=== PATIENT | male | born 1945 | race Caucasian/White ===

== ENCOUNTER 2019-07-22 13:28 | Outpatient (CLI) | payer OTHER, SELFPAY ==
--- NOTE | 2019-07-22 13:32 | ECG_ITS ---
Measurements Intervals [place] Rate: 78 P: -16 NE: 223 QRS: -22 QRSD: 100 T: 15 QT: 351 QTc: 401 Interpretive Statements SINUS RHYTHM WITH FIRST DEGREE AV BLOCK LOW VOLTAGE- PRECORDIAL LEADS BASELINE ARTIFACT- I, II, AVR ABNORMAL ECG Electronically Signed On 07-22-2019 15:02:20 CDT by Tomasz Wagner D.O.
[2019-07-22 14:33] LABS: Basophils Percent Auto 0.3 % (0.2-1.2); Eosinophils Absolute Auto 0.1 K/mm3 (0-0.3); Eosinophils Percent Auto 1.2 % (0-4.4); Hematocrit 38.4 % (42.0-52.0); Immature Granulocyte Absolute 0.04 K/mm3 (0.00-0.031); Immature Granulocyte Percent A 0.5 % (0-0.5); Lymphocytes Absolute Auto 1.18 K/mm3 (0.9-3.2); Lymphocytes Percent Auto 13.6 % (18.3-44.2); Mean Corpuscular HGB Conc 33.9 g/dl (32-36); Mean Corpuscular Hemoglobin 31.1 pg (26-34); Mean Corpuscular Volume 91.9 fl (80-100); Monocytes Absolute Auto 0.7 K/mm3 (0.1-0.6); Monocytes Percent Auto 7.5 % (2.6-8.5); Neutrophils Absolute Auto 6.7 K/mm3 (1.3-6.7); Neutrophils Percent Auto 76.9 % (45.5-73.1); Platelet Count Result 255 k/mm3 (150-375); Red Blood Count 4.18 M/mm3 (4.6-6.20); Red Cell Distribution Width 12.3 % (11.5-14.5); White Blood Count 8.7 K/mm3 (4.5-10.0)
[2019-07-22 14:45] LABS: Blood Urea Nitrogen 23 mg/dL (9-20); Carbon Dioxide 26 mmol/L (22-30); Chloride 103 mmol/L (98-107); Estimated Glomerular Filt Rate > 60; Glucose 138 mg/dL (75-110); Potassium 4.5 mmol/L (3.4-5.0); Sodium 137 mmol/L (137-145)
[2019-07-22 15:53] LABS: Prothrombin Time 13.3 Seconds (11.1-14.7)
[2019-07-22 15:56] LABS: Partial Thromboplastin Time 28.2 SECONDS (22.3-36.8)
== END 2019-07-22 13:29 | disposition home or self-care (01) ==
LOC: ANHSURGERY 13:32
PROVIDERS: PCP Family Medicine; Visit Provider Urology
DX: Z01.818 Encounter for other preprocedural examination (principal); I10 Essential (primary) hypertension; R35.1 Nocturia; N40.1 Benign prostatic hyperplasia with lower urinary tract symptoms; R94.31 Abnormal electrocardiogram [ECG] [EKG]
CPT/HCPCS: 36415; 80048; 85025; 85610; 85730; 87077; 87086; 87088; 87186; 93005

== ENCOUNTER 2019-07-24 00:39 | Outpatient (CLI) | payer OTHER, SELFPAY ==
[2019-07-24 16:39] LABS: SARS-CoV-2 RNA PCR Negative
== END 2019-07-24 00:40 | disposition home or self-care (01) ==
LOC: ANHCOVIDDT 00:39
PROVIDERS: PCP Family Medicine; Visit Provider Urology
DX: Z01.812 Encounter for preprocedural laboratory examination (principal); Z20.828 Contact with and (suspected) exposure to other viral communicable diseases
CPT/HCPCS: 87635; C9803; U0003

== ENCOUNTER 2019-07-28 00:14 | Outpatient (CLI) | payer OTHER, SELFPAY ==
[2019-07-28 17:33] LABS: SARS-CoV-2 RNA PCR Negative
== END 2019-07-28 00:15 | disposition home or self-care (01) ==
LOC: ANHCOVIDDT 00:14
PROVIDERS: PCP Family Medicine; Visit Provider Urology
DX: Z01.818 Encounter for other preprocedural examination (principal); Z11.59 Encounter for screening for other viral diseases
CPT/HCPCS: 87635; C9803; U0003

== ENCOUNTER 2019-07-31 16:52 | Observation (INO) | payer OTHER, SELFPAY ==
[2019-07-20 14:44] VITALS: BMI 24.4
[2019-07-30] VITALS (15 sets, daily range): BP systolic 117–162; BP diastolic 63–92; PULSE 72–93; RESP 13–19; TEMP 36.3–36.8; O2SAT 93–100
--- NOTE | 2019-07-30 08:40 | WPDHPUPDATE1 ---
History and Physical Update Update Date/Time: 07/30/19 08:40 History and Physical has been reviewed, including an updated exam of the patient. There are NO changes in the patient's condition. Risks, benefits, and alternatives have been discussed and questions answered. Patient agrees to proceed with procedure. Will proceed with TURP
[2019-07-30] MEDS: LACTATED RINGERS 1,000 ML 30 ML IV CONT ×2 (09:00→11:47)
--- NOTE | 2019-07-30 09:57 | WPDANESEPPF ---
Anes - Initial Pre Proc Eval Procedure: Operation Date: 07/30/19 10:30 Proposed Procedures p Trans Urethral Resection Prostate - Jesús Nam MD Date/Time: 07/30/19 09:57 Surgeon: Jesús Nam MD Pre Op Diagnosis: BPH, retention Patient Data Age: 74 Gender: M Height: 6 ft 1 in Weight: 80.3 kg Last Vital Signs Temp 98 F 07/30/19 09:32 Pulse 87 07/30/19 09:32 Resp 16 07/30/19 09:32 BP 124/75 07/30/19 09:32 Pulse Ox 96 07/30/19 09:32 Allergies Allergy/AdvReac Type Severity Reaction Status Date / Time JUSTINA Inhibitors AdvReac Mild Cough Verified 07/30/19 08:37 Home Medications Medication Instructions Recorded Confirmed Type aspirin 81 mg tablet,delayed 81 mg PO DAILY 12/29/18 07/30/19 History release cholecalciferol (vitamin D3) 25 1,000 unit PO DAILY 12/29/18 07/30/19 History mcg (1,000 unit) chewable tablet clopidogrel 75 mg tablet 75 mg PO DAILY 12/29/18 07/30/19 History cyanocobalamin (vitamin B-12) 1,000 mcg PO DAILY 12/29/18 07/30/19 History 1,000 mcg tablet losartan 50 mg tablet 50 mg PO DAILY 12/29/18 07/30/19 History finasteride 5 mg tablet 5 mg PO DAILY #90 tablet 02/24/19 07/30/19 Rx tamsulosin 0.4 mg capsule 0.4 mg PO BID #180 cap 02/24/19 07/30/19 Rx atorvastatin 20 mg tablet 20 mg PO DAILY #90 tablet 02/25/19 07/30/19 Rx metoprolol succinate 25 mg 25 mg PO DAILY #90 tablet 04/02/19 07/30/19 Rx tablet,extended release 24 hr multivit with min-folic acid 0.4 mg PO DAILY 07/20/19 07/30/19 History [Daily Multiple For Men] ciprofloxacin HCl 500 mg PO Q12H 07/27/19 07/30/19 History Patient hx anesthesia problems: none Family hx anesthesia problems: none PMFSH Past Medical History Medical History (Updated 07/30/19 @ 09:53 by Franko Hobbs MD) BPH associated with nocturia HLD (hyperlipidemia) Surgical History Surgical History H/O hernia repair History of coronary artery stent placement History of lumbar surgery History of tonsillectomy Social History Social History (Updated 02/24/19 @ 10:35 by Radha Kelsey) Smoking packs per day: 1 Smoking cigarettes per day: 20.0 Years smoked: 2.5 Smoking pack-years: 2.50 Smoking status: Former smoker Tobacco type: cigarettes Second hand tobacco smoke exposure: No Smoking end date: 02/17/70 Alcohol intake: never Substance use: never Substance use type: does not use Gender identity (if verbalized by the patient): Male Anes - Eval Final PreProcedure Day of Procedure 07/30/19 09:57 Patient weight: normal Heart: regular rate and rhythm Lungs: clear to auscultation Airway: Mallampati scale (has difficulty with mobility and flexion and extension) class III Neurological: alert and oriented Last oral intake: >/= 8 hours ASA classification: III Emergent: no Anesthetic plan: proceed Anesthesia type and monitoring: general LMA and standard monitoring Informed Consent: The patient's anesthetic plan and its attendant risks and benefits were discussed with the patient/family/POA. Questions were solicited and answers provided to the satisfaction of the patient/family/POA.
[2019-07-30] MEDS: ceFAZolin 2 GM/D5W 50 ML 2 GM/50 ML BAG IVPB (10:23)
[2019-07-30] MEDS: LIDOCAINE HCL 2% GEL UROJET 10 ML PKG MUCOUS MEM (11:35)
--- NOTE | 2019-07-30 11:36 | SUR.OPER ---
EBL:50cc
--- NOTE | 2019-07-30 11:41 | PM.PROC ---
Procedure Note - Detailed Date of procedure: 07/30/19 Pre-op diagnosis: BPH, retention Post-op diagnosis: same Procedure performed: Transurethral resection of prostate Description of procedure: Patient was taken to the operative suite and correctly identified. Once anesthesia was obtained he was placed in a dorsal lithotomy position and prepped and draped usual sterile fashion. A 24 [place] resectoscope sheath was inserted in the bladder. He does have an elevated median bar as well as lobe. Both ureteral orifices were visualized. We went in resected the floor of the prostate 1st from the bladder neck to the vera. Lateral lobes were then taken down again from the bladder neck to the vera. Hemostasis was achieved using electrocautery with the rollerball. Ureteral orifices were visualized at all times. The external sphincter was intact. Prostate chips were retrieved and sent for analysis. 2% viscous lidocaine was inserted into the urethra and a [address] [place] [address] was placed. 20 cc of sterile saline were placed in the balloon. This was connected to continuous bladder irrigation. Patient is taken recovery room stable condition. He will be discharged home with a Ivey catheter once his urine clears. Will plan on removing the catheter next week in the office Anesthesia: GLMA Surgeon: Jesús Nam MD Estimated blood loss (mL): 50 Drains: Yes Packing: No Pathology: yes Complications: No immediate complications Condition: stable Disposition: PACU
--- NOTE | 2019-07-30 13:25 | PC.NURSE ---
This patient, Carlos King, was admitted to [facility] Surg Room 312-01. Patient/family oriented to hospital policies and general routines including ID bracelet, bed and alarms, visiting hours, pain management, procedures, bathroom and other care routines, personal items, smoking policy, room service/diet, and visiting hours. Valuables list has been completed. Information on how to activate the Rapid Response Team has been discussed. Patient/Family are encouraged to report perceived risks to care and to ask questions if they do not understand what they are told or what they should do.
[2019-07-30] MEDS: DOCUSATE SODIUM 100 MG CAPSULE PO (17:20)
[2019-07-30] MEDS: TAMSULOSIN HCL 0.4 MG CAPSULE PO (21:02)
[2019-07-31 02:00] VITALS: BP 131/75; PULSE 75; RESP 16; TEMP 36.4; O2SAT 95
[2019-07-31 06:00] VITALS: BP 135/83; PULSE 67; RESP 18; TEMP 36.3; O2SAT 96
[2019-07-31 07:45] LABS: Hematocrit 37.3 % (42.0-52.0); Hemoglobin 12.6 g/dL (14.0-18.0)
[2019-07-31 08:07] LABS: Blood Urea Nitrogen 18 mg/dL (9-20); Carbon Dioxide 29 mmol/L (22-30); Chloride 101 mmol/L (98-107); Estimated CRCL calculation 93 ml/min; Estimated Glomerular Filt Rate > 60; Glucose 117 mg/dL (75-110); Potassium 4.4 mmol/L (3.4-5.0); Sodium 135 mmol/L (137-145)
[2019-07-31] MEDS: TAMSULOSIN HCL 0.4 MG CAPSULE PO ×2 (08:35→20:36)
[2019-07-31] MEDS: DOCUSATE SODIUM 100 MG CAPSULE PO ×2 (08:35→17:54)
[2019-07-31] MEDS: CEPHALEXIN 500 MG CAPSULE PO ×4 (08:35→20:36)
[2019-07-31] MEDS: LOSARTAN POTASSIUM 50 MG TABLET PO (08:35)
[2019-07-31] MEDS: ATORVASTATIN 20 MG TABLET PO (08:35)
[2019-07-31 08:36] VITALS: PULSE 75
[2019-07-31] MEDS: METOPROLOL SUCCINATE EXT REL 25 MG TABCR PO (08:36)
[2019-07-31 10:27] VITALS: O2SAT 94
--- NOTE | 2019-07-31 10:28 | WPDUROPN2 ---
Progress Note: A&P Assessment and Plan (1) Urinary retention: Code(s): R33.9 - Retention of urine, unspecified Status: Acute Assessment and Plan: Continue with CBI this morning. Have instructed nurses to weaned to off later in day. If it was only a slight pink he can be discharged with Ivey catheter and we will plan on removal next week. If it continues to stay red he will need to stay here and other night. Subjective Subjective Date/Time Seen: 07/31/19 10:28 Doing well overall but urine still somewhat red off CBI. Will re-initiate 4 this morning Review of Systems Review of Systems: All systems reviewed & are unremarkable except as noted in HPI and below Exam Const: General: comfortable HENMT: General nose exam: Normal nares present Eyes: EOM: EOMs intact bilaterally Neck: Lymphatic: lymphadenopathy (Mild enlargement of a left jugular lymph node. States tenderness has impro) Resp: Effort & Inspection: normal respiratory effort Cardio: Rate: regular rate Urinary Catheter: Urinary Catheter: patent and draining and urine red Objective Data Vital Signs Vital Signs: Vital Signs - 24 hr 07/30/19 11:47 07/30/19 11:56 07/30/19 12:00 Temperature 36.7 C 36.8 C Pulse Rate 85 81 Respiratory Rate 13 18 Blood Pressure 117/75 133/79 Pulse Oximetry 98 98 100 07/30/19 12:16 07/30/19 12:25 07/30/19 12:40 Temperature 36.7 C Pulse Rate 80 72 72 Respiratory Rate 19 14 17 Blood Pressure 127/87 129/76 129/76 Pulse Oximetry 100 98 93 07/30/19 12:55 07/30/19 13:10 07/30/19 13:25 Temperature 36.8 C Pulse Rate 75 74 80 Respiratory Rate 14 14 16 Blood Pressure 123/71 119/75 162/92 H Pulse Oximetry 95 94 98 07/30/19 13:40 07/30/19 14:10 07/30/19 15:33 Temperature 36.6 C 36.6 C 36.7 C Pulse Rate 86 88 84 Respiratory Rate 16 16 16 Blood Pressure 118/72 140/78 136/74 Pulse Oximetry 97 97 98 07/30/19 17:52 07/30/19 22:57 07/31/19 02:00 Temperature 36.5 C 36.3 C L 36.4 C Pulse Rate 93 78 75 Respiratory Rate 16 16 16 Blood Pressure 139/84 135/63 131/75 Pulse Oximetry 97 97 95 07/31/19 06:00 07/31/19 08:36 Temperature 36.3 C L Pulse Rate 67 75 Respiratory Rate 18 Blood Pressure 135/83 Pulse Oximetry 96 Intake/Output Intake/Output: Intake & Output 07/28/19 07/29/19 07/30/19 07/31/19 23:59 23:59 23:59 23:59 Intake Total 990 730 Output Total 5150 1150 Balance -4160 -420 Meds/Results Medications: Active Medications Generic Name Dose Route Start Last Admin Trade Name Freq PRN Reason Stop Dose Admin Hydrocodone Bitart/Acetaminophen 1 tab 07/30/19 13:19 07/30/19 17:54 [place] 5-325 Mg PO 1 tab Q4H PRN Administration Pain Rated 1-6 Atorvastatin Calcium 20 mg 07/31/19 09:00 07/31/19 08:35 Lipitor PO 20 mg DAILY ROSHNI Administration Cephalexin HCl 500 mg 07/31/19 09:00 07/31/19 08:35 Keflex Capsule PO 500 mg QID ROSHNI Administration Docusate Sodium 100 mg 07/30/19 17:00 07/31/19 08:35 Colace Capsule PO 100 mg BID ROSHNI Administration Hyoscyamine 0.125 mg 07/30/19 13:19 Levsin Tablet SUBLINGUAL Q6H PRN Bladder Spasm Losartan Potassium 50 mg 07/31/19 09:00 07/31/19 08:35 Cozaar PO 50 mg DAILY ROSHNI Administration Metoprolol Succinate 25 mg 07/31/19 09:00 07/31/19 08:36 Toprol Xl PO 25 mg DAILY ROSHNI Administration Morphine Sulfate 2 mg 07/30/19 13:19 Morphine Sulfate Inj IV PUSH Q2H PRN Pain Rated 7-10 Naloxone HCl 0.1 mg 07/30/19 13:19 Narcan IV PUSH Q2M PRN Opiate Reversal Ondansetron HCl 4 mg 07/30/19 13:19 Zofran Inj IV PUSH Q12H PRN Nausea And Vomiting Tamsulosin HCl 0.4 mg 07/30/19 21:00 07/31/19 08:35 Flomax PO 0.4 mg Q12HR ROSHNI Administration Labs Labs: Laboratory Results - last 24 hr 07/31/19 07/31/19 06:52 06:52 Hgb 12.6 L Hct 37.3 L Sodium 135 L Potassium 4.4 Chloride
--- NOTE | 2019-07-31 10:56 | WPDANESPN ---
Anes - Prog Note Post-Op Date/Time: 07/31/19 10:56 Cardiovascular status: normal Respiratory status: normal Airway patency: baseline Mental status: baseline Post-Op hydration status: normal Vital Signs: Last Vital Signs Temp 36.3 C L 07/31/19 06:00 Pulse 75 07/31/19 08:36 Resp 18 07/31/19 06:00 BP 135/83 07/31/19 06:00 Pulse Ox 94 07/31/19 10:27 I/O: Intake & Output 07/30/19 07/31/19 07/31/19 23:59 07:59 15:59 Intake Total 290 730 Output Total 100 1150 Balance 190 -420 Laboratory Tests 07/31/19 06:52 07/31/19 06:52 07/31/19 07/31/19 06:52 06:52 Hgb 12.6 L Hct 37.3 L Sodium 135 L Potassium 4.4 Chloride 101 Carbon Dioxide 29 BUN 18 Creatinine 0.70 Estim Creat Clear Calc 93 Estimated GFR > 60 Glucose 117 H Calcium 9.0 Post-procedural complaints: none Patient Feedback: Patient satisfied with anesthetic care.
[2019-07-31 14:00] VITALS: BP 112/66; PULSE 83; RESP 16; TEMP 36.7; O2SAT 95
[2019-07-31] MEDS: MORPHINE SULFATE 2 MG/ML INJ IV PUSH (17:51)
[2019-07-31 22:00] VITALS: BP 123/64; PULSE 74; RESP 20; TEMP 36.9; O2SAT 95
[2019-08-01 06:05] VITALS: BP 128/70; PULSE 54; RESP 18; TEMP 36.9; O2SAT 90
[2019-08-01] MEDS: CEPHALEXIN 500 MG CAPSULE PO ×4 (08:05→21:12)
[2019-08-01 08:06] VITALS: PULSE 84
[2019-08-01] MEDS: TAMSULOSIN HCL 0.4 MG CAPSULE PO ×2 (08:06→21:12)
[2019-08-01] MEDS: DOCUSATE SODIUM 100 MG CAPSULE PO ×2 (08:06→17:49)
[2019-08-01] MEDS: ATORVASTATIN 20 MG TABLET PO (08:06)
[2019-08-01] MEDS: METOPROLOL SUCCINATE EXT REL 25 MG TABCR PO (08:06)
[2019-08-01] MEDS: LOSARTAN POTASSIUM 50 MG TABLET PO (08:06)
--- NOTE | 2019-08-01 10:37 | WPDUROPN2 ---
Progress Note: A&P Assessment and Plan (1) Urinary retention: Code(s): R33.9 - Retention of urine, unspecified Status: Acute Assessment and Plan: Irrigated at bedside this morning--no clots and will tyr to keep CBI off. Have instructed nurses to resume if needed . Plan home tomorrow likey with benedict, but could consider trial of voiding. left neck still swollen and will observe today---stable. Consider ENT eval if worsening. Subjective Subjective Date/Time Seen: 08/01/19 10:37 Review of Systems Review of Systems: All systems reviewed & are unremarkable except as noted in HPI and below Exam Const: General: comfortable HENMT: General nose exam: Normal nares present Neck: Lymphatic: lymphadenopathy (Mild enlargement of a left jugular lymph node. States tenderness has impro) Resp: Effort & Inspection: normal respiratory effort Cardio: Rate: regular rate Urinary Catheter: Urinary Catheter: patent and draining and urine red Objective Data Vital Signs Vital Signs: Vital Signs - 24 hr 07/31/19 14:00 07/31/19 22:00 08/01/19 06:05 Temperature 36.7 C 36.9 C 36.9 C Pulse Rate 83 74 54 L Respiratory Rate 16 20 18 Blood Pressure 112/66 123/64 128/70 Pulse Oximetry 95 95 90 08/01/19 08:06 Temperature Pulse Rate 84 Respiratory Rate Blood Pressure Pulse Oximetry Intake/Output Intake/Output: Intake & Output 07/29/19 07/30/19 07/31/19 08/01/19 23:59 23:59 23:59 23:59 Intake Total 990 09410 640 Output Total 4752 68680 750 [facility] -4160 -3860 -110 Meds/Results Medications: Active Medications Generic Name Dose Route Start Last Admin Trade Name Freq PRN Reason Stop Dose Admin Hydrocodone Bitart/Acetaminophen 1 tab 07/30/19 13:19 08/01/19 05:24 [place] 5-325 Mg PO 1 tab Q4H PRN Administration Pain Rated 1-6 Atorvastatin Calcium 20 mg 07/31/19 09:00 08/01/19 08:06 Lipitor PO 20 mg DAILY ROSHNI Administration Cephalexin HCl 500 mg 07/31/19 09:00 08/01/19 08:05 Keflex Capsule PO 500 mg QID ROSHNI Administration Docusate Sodium 100 mg 07/30/19 17:00 08/01/19 08:06 Colace Capsule PO 100 mg BID ROSHNI Administration Hyoscyamine 0.125 mg 07/30/19 13:19 Levsin Tablet SUBLINGUAL Q6H PRN Bladder Spasm Losartan Potassium 50 mg 07/31/19 09:00 08/01/19 08:06 Cozaar PO 50 mg DAILY ROSHNI Administration Metoprolol Succinate 25 mg 07/31/19 09:00 08/01/19 08:06 Toprol Xl PO 25 mg DAILY [facility] Administration Morphine Sulfate 2 mg 07/30/19 13:19 07/31/19 17:51 Morphine Sulfate Inj IV PUSH 2 mg Q2H PRN Administration Pain Rated 7-10 Naloxone HCl 0.1 mg 07/30/19 13:19 Narcan IV PUSH Q2M PRN Opiate Reversal Ondansetron HCl 4 mg 07/30/19 13:19 Zofran Inj IV PUSH Q12H PRN Nausea And Vomiting Tamsulosin HCl 0.4 mg 07/30/19 21:00 08/01/19 08:06 Flomax PO 0.4 mg Q12HR [facility] Administration
[2019-08-01] MEDS: MORPHINE SULFATE 2 MG/ML INJ IV PUSH (13:28)
[2019-08-01 22:00] VITALS: BP 120/60; PULSE 80; RESP 20; TEMP 36.8; O2SAT 95
[2019-08-02 06:00] VITALS: BP 130/62; PULSE 80; RESP 18; TEMP 37.1; O2SAT 98
[2019-08-02 08:05] VITALS: PULSE 80
[2019-08-02] MEDS: LOSARTAN POTASSIUM 50 MG TABLET PO (08:05)
[2019-08-02] MEDS: TAMSULOSIN HCL 0.4 MG CAPSULE PO (08:05)
[2019-08-02] MEDS: DOCUSATE SODIUM 100 MG CAPSULE PO (08:05)
[2019-08-02] MEDS: CEPHALEXIN 500 MG CAPSULE PO (08:05)
[2019-08-02] MEDS: METOPROLOL SUCCINATE EXT REL 25 MG TABCR PO (08:05)
[2019-08-02] MEDS: ATORVASTATIN 20 MG TABLET PO (08:05)
--- NOTE | 2019-08-02 09:42 | WPDUROPN2 ---
Progress Note: A&P Assessment and Plan (1) BPH associated with nocturia: Code(s): N40.1 - Benign prostatic hyperplasia with lower urinary tract symptoms; R35.1 - Nocturia Status: Acute Assessment and Plan: void trial today and d/c home Subjective Subjective Date/Time Seen: 08/02/19 09:42 urine clear with CBI off Exam Const: General: no acute distress Resp: Effort & Inspection: normal respiratory effort Urinary Catheter: Urinary Catheter: patent and draining and urine clear Skin: General skin exam: normal color Objective Data Vital Signs Vital Signs: Vital Signs - 24 hr 08/01/19 22:00 08/02/19 06:00 08/02/19 08:05 Temperature 98.3 F 98.8 F Pulse Rate 80 80 80 Respiratory Rate 20 18 Blood Pressure 120/60 130/62 Pulse Oximetry 95 98 Intake/Output Intake/Output: Intake & Output 07/30/19 07/31/19 08/01/19 08/02/19 23:59 23:59 23:59 23:59 Intake Total 990 01365 2220 250 Output Total 5150 92153 1850 1000 Balance -4160 -3860 370 -750 Meds/Results Medications: Active Medications Generic Name Dose Route Start Last Admin Trade Name Freq PRN Reason Stop Dose Admin Hydrocodone Bitart/Acetaminophen 1 tab 07/30/19 13:19 08/02/19 08:04 [place] 5-325 Mg PO 1 tab Q4H PRN Administration Pain Rated 1-6 Atorvastatin Calcium 20 mg 07/31/19 09:00 08/02/19 08:05 Lipitor PO 20 mg DAILY ROSHNI Administration Cephalexin HCl 500 mg 07/31/19 09:00 08/02/19 08:05 Keflex Capsule PO 500 mg QID ROSHNI Administration Docusate Sodium 100 mg 07/30/19 17:00 08/02/19 08:05 Colace Capsule PO 100 mg BID ROSHNI Administration Hyoscyamine 0.125 mg 07/30/19 13:19 Levsin Tablet SUBLINGUAL Q6H PRN Bladder Spasm Losartan Potassium 50 mg 07/31/19 09:00 08/02/19 08:05 Cozaar PO 50 mg DAILY ROSHNI Administration Metoprolol Succinate 25 mg 07/31/19 09:00 08/02/19 08:05 Toprol Xl PO 25 mg DAILY ROSHNI Administration Morphine Sulfate 2 mg 07/30/19 13:19 08/01/19 13:28 Morphine Sulfate Inj IV PUSH 2 mg Q2H PRN Administration Pain Rated 7-10 Naloxone HCl 0.1 mg 07/30/19 13:19 Narcan IV PUSH Q2M PRN Opiate Reversal Ondansetron HCl 4 mg 07/30/19 13:19 Zofran Inj IV PUSH Q12H PRN Nausea And Vomiting Tamsulosin HCl 0.4 mg 07/30/19 21:00 08/02/19 08:05 Flomax PO 0.4 mg Q12HR ROSHNI Administration
--- NOTE | 2019-08-26 12:43 | PM.DS ---
DS: Admitting Diagnosis Admitting Diagnosis Admitting Diagnosis: Benign prostatic hyperplasia with lower urinary tract symptoms DS: Discharge Diagnosis Discharge Diagnosis (1) BPH associated with nocturia: Code(s): N40.1 - Benign prostatic hyperplasia with lower urinary tract symptoms; R35.1 - Nocturia Status: Acute (2) Urinary retention: Code(s): R33.9 - Retention of urine, unspecified Status: Acute DS: Summary Hospital Course Reason for hospitalization: Urinary retention with BPH Hospital Course: Patient had an uneventful transurethral resection of his prostate. Postoperatively he did well. He was discharged on postoperative day 2. With a Ivey catheter and instructions to have it removed in the office. He is to call the office with any issues or complaints. 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 Time Spent with Patient Time attestation: Total time spent providing and/or coordinating discharge services: DS: Data Data Completed and Pending Completed studies during hospitalization: Pending at discharge 07/30/19 10:48 Surgical [PTH] Routine Discharge Plan Discharge Attending physician on discharge: Jesús Nam Consulting providers: [place]ung [place] Discharging Clinician: Zenon Smith Anticipated Discharge Date/Time: 08/02/19 13:00 Patient Disposition: Home, Self-Care Activity: may shower, no straining and pelvic rest Diet: as tolerated Patient Instructions: Antibiotic Form Stand Alone Forms: General Discharge Information Follow-up/Referrals: Jesús Nam MD [Physician] - 4 Weeks Discharge Medications: New losartan [Cozaar] 50 mg Tablet 50 mg PO DAILY Qty: 60 RF: 0 hydrocodone-acetaminophen [[place]] 5-325 mg tablet 1 tablet PO Q4H PRN (Reason: pain) Qty: 20 RF: 0 docusate sodium [Colace] 100 mg capsule 100 mg PO BID Qty: 60 RF: 0 hydrocodone-acetaminophen [[place]] 5-325 mg tablet 1 tablet PO Q4H PRN (Reason: pain) Qty: 20 RF: 0 docusate sodium [Colace] 100 mg capsule 100 mg PO BID Qty: 60 RF: 0 hydrocodone-acetaminophen [[place]] 5-325 mg tablet 1 tablet PO Q4H PRN (Reason: pain) Qty: 20 RF: 0 docusate sodium [Colace] 100 mg capsule 100 mg PO BID Qty: 60 RF: 0 hydrocodone-acetaminophen [[place]] 5-325 mg tablet 1 tablet PO Q4H PRN (Reason: pain) Qty: 20 RF: 0 Continued losartan 50 mg tablet 50 mg PO DAILY RF: 0 cholecalciferol (vitamin D3) 1,000 unit tablet,chewable 1,000 unit PO DAILY RF: 0 cyanocobalamin (vitamin B-12) [Vitamin B-12] 1,000 mcg tablet 1,000 mcg PO DAILY RF: 0 Daily Multiple For Men 0.4 mg Tablet 0.4 mg PO DAILY RF: 0 metoprolol succinate 25 mg tablet extended release 24 hr 25 mg PO DAILY Qty: 90 RF: 2 Held aspirin 81 mg tablet,delayed release (DR/EC) 81 mg PO DAILY RF: 0 Hold Instructions: Resume on 08/06/19. clopidogrel 75 mg tablet 75 mg PO DAILY RF: 0 Hold Instructions: Resume on 08/06/19. Discontinued tamsulosin [Flomax] 0.4 mg capsule 0.4 mg PO BID Qty: 180 RF: 3 finasteride 5 mg tablet 5 mg PO DAILY Qty: 90 RF: 3 ciprofloxacin HCl 500 mg Tablet 500 mg PO Q12H RF: 0 No Action atorvastatin 20 mg tablet 20 mg PO DAILY Qty: 90 RF: 1 Date of admission: 07/31/19 16:52 Primary Care Provider: Casey Gonzalez Admitting Provider: Jesús Nam Discharge Date/Time: 08/02/19 15:10 Attending physician on admission: Zenon Smith
--- NOTE | 2019-09-03 06:59 | PM.IMHP ---
H&P: HPI History of Present Illness Chief complaint: BPH, retention Narrative: Carlos King is a 74 year old male [facility], LAT[facility] Past Medical History Medical History (Updated 08/31/19 @ 11:44 by Su Gregorio PA-C) BPH associated with nocturia HLD (hyperlipidemia) Malignant neoplasm of prostate Surgical History Surgical History H/O hernia repair History of coronary artery stent placement History of lumbar surgery History of tonsillectomy Social History Social History (Updated 02/24/19 @ 10:35 by Radha Kelsey) Smoking packs per day: 1 Smoking cigarettes per day: 20.0 Years smoked: 2.5 Smoking pack-years: 2.50 Smoking status: Never smoker Tobacco type: cigarettes Second hand tobacco smoke exposure: No Smoking end date: 02/17/70 Alcohol intake: never Substance use: never Substance use type: does not use Gender identity (if verbalized by the patient): Male Spiritual care concerns: No Meds Home Medications and Allergies Home Medications Medication Instructions Recorded Confirmed Type aspirin 81 mg tablet,delayed 81 mg PO DAILY 12/29/18 07/30/19 History release cholecalciferol (vitamin D3) 25 1,000 unit PO DAILY 12/29/18 07/30/19 History mcg (1,000 unit) chewable tablet clopidogrel 75 mg tablet 75 mg PO DAILY 12/29/18 07/30/19 History cyanocobalamin (vitamin B-12) 1,000 mcg PO DAILY 12/29/18 07/30/19 History 1,000 mcg tablet losartan 50 mg tablet 50 mg PO DAILY 12/29/18 07/30/19 History metoprolol succinate 25 mg 25 mg PO DAILY #90 tablet 04/02/19 07/30/19 Rx tablet,extended release 24 hr Daily Multiple For Men 0.4 mg PO DAILY 07/20/19 07/30/19 History docusate sodium [Colace] 100 mg PO BID #60 cap 08/02/19 Rx docusate sodium [Colace] 100 mg PO BID #60 cap 08/02/19 Rx docusate sodium [Colace] 100 mg PO BID #60 cap 08/02/19 Rx hydrocodone-acetaminophen [[place]] 1 tablet PO Q4H PRN #20 tablet 08/02/19 Rx hydrocodone-acetaminophen [[place]] 1 tablet PO Q4H PRN #20 tablet 08/02/19 Rx hydrocodone-acetaminophen [[place]] 1 tablet PO Q4H PRN #20 tablet 08/02/19 Rx hydrocodone-acetaminophen [[place]] 1 tablet PO Q4H PRN #20 tablet 08/02/19 Rx losartan [Cozaar] 50 mg PO DAILY #60 tablet 08/02/19 Rx atorvastatin 20 mg tablet 20 mg PO DAILY #90 tablet 08/25/19 Rx Allergies Allergy/AdvReac Type Severity Reaction Status Date / Time JUSTINA Inhibitors AdvReac Mild Cough Verified 07/30/19 08:37 Exam Const: General: no acute distress HENMT: General nose exam: Normal nares present Eyes: General: appearance normal, both eyes and all related structures Resp: Effort & Inspection: normal respiratory effort Cardio: Rhythm: regular rhythm Skin: General skin exam: normal color Neuro: Speech: normal speech
== END 2019-08-02 15:10 | disposition home or self-care (01) ==
LOC: ANHSURGERY 16:56 → ANH3MEDSUR 08-02 10:12
PROVIDERS: Admitting Provider Urology; PCP Family Medicine; Visit Provider Urology
PROC: 0VT08ZZ Resection of Prostate, Via Natural or Artificial Opening Endoscopic (ICD-10-PCS; CPT 52601; principal; 2019-07-30 10:30)
DX: C61 Malignant neoplasm of prostate (principal); N40.1 Benign prostatic hyperplasia with lower urinary tract symptoms; R35.1 Nocturia; R33.8 Other retention of urine; E78.5 Hyperlipidemia, unspecified; Z79.82 Long term (current) use of aspirin; Z79.899 Other long term (current) drug therapy; Z87.891 Personal history of nicotine dependence
CPT/HCPCS: 52601; 36415; 80048; 85014; 85018; 88305; A9270; G0378; J0690; J1100; J2270; J2405; J2704; J3010; J7120

== ENCOUNTER 2019-08-11 07:37 | Outpatient (CLI) | payer OTHER, SELFPAY ==
--- NOTE | ~2019-08-11 | CT_ITS ---
EXAMINATION: CT abdomen pelvis w con INDICATION: Prostate cancer TECHNIQUE: Computed tomographic images of the abdomen and pelvis were obtained after the administrati on of 100 cc of Omnipaque 350 intravenous contrast. The dose-length product (DLP) was 421.92 mGy-cm. Automated exposure control and iterative reconstruction technique were employed. COMPARISON: None available FINDINGS: There is mild atelectasis of the visualized lung bases. The heart size is normal. There is a small sliding hiatal hernia. The liver, spleen, pancreas, gallbladder, and adrenal glands are emmanuel l. The kidneys are unremarkable. There is calcified atherosclerosis of the aorta and many of the othe r arteries. The prostate is enlarged and heterogeneous in appearance. A central defect in the prostat e likely relates to prior TURP procedure. There is diffuse circumferential thickening of the bladder wall. There is pelvic lymphadenopathy. For instance, a 1.7 x 1.5 cm right external iliac chain lymph node seen adjacent to the bladder. There is a 2.1 x 1.5 cm left obturator lymph node. Colonic diverti culosis is present without evidence of diverticulitis. A large volume of colonic stool is present. Th ere is no free intraperitoneal gas or evidence of bowel obstruction. There is severe lumbar spondylos is. A fat-containing umbilical hernia is noted. IMPRESSION: 1. Enlarged and heterogeneous appearing prostate, consistent with history of prostate cancer. 2. Pelvic lymphadenopathy consistent with metastatic disease. 3. Diffuse bladder wall thickening, likely related to chronic outlet obstruction. Reviewed, dictated and finalized at location A. IMPRESSION: 1. Enlarged and heterogeneous appearing prostate, consistent with history of pr ostate cancer. 2. Pelvic lymphadenopathy consistent with metastatic disease. 3. Diffuse bladder wall thickening, likely related to chronic outlet obstructio n.
--- NOTE | ~2019-08-11 | NM_ITS ---
EXAMINATION: NM bone scan whole body DATE: 08/11/2019 12:31 INDICATION: Prostate cancer TECHNIQUE: 24.6 mCi Tc-99m HDP was administered intravenously. Delayed whole-body scintigrams were o btained. 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 Mild l ikely degenerative joint centered uptake at the radial aspect of the left carpus and at the lateral a nd patellofemoral compartments of the right knee. No other suspicious foci of abnormal bone uptake to suggest metastatic disease. IMPRESSION: 1. No evident osseous metastatic disease. Reviewed, dictated and finalized at location A.
== END 2019-08-11 07:38 | disposition home or self-care (01) ==
PROVIDERS: PCP Family Medicine; Visit Provider Urology
DX: C61 Malignant neoplasm of prostate (principal); R59.1 Generalized enlarged lymph nodes; N32.9 Bladder disorder, unspecified
CPT/HCPCS: 74177; 78306; A9561; Q9967

== ENCOUNTER → 2020-01-06 10:42 | Outpatient (CLI) | payer OTHER, SELFPAY ==
--- NOTE | ~2020-01-06 | MR_ITS ---
EXAMINATION: MR lumbar spine wo [facility] EXAM DATE: 01/06/2020 11:55 INDICATION: Low back pain, right leg pain. TECHNIQUE: Multi-sequential, multiplanar MR images of the lumbar spine were obtained without contrast . Sagittal T1, T2, T2 fat saturation images. Axial T2 weighted images. There is no prior study for comparison. FINDINGS: There is moderate to severe loss of the disc heights T12-L3, mild to moderate at L3-4 and L 4-5, moderate at L5-S1. There is 3 mm retrolisthesis L5 on S1, 2 mm retrolisthesis L4 on L5 and L2 on L3. There are no suspicious marrow signal abnormalities. The conus medullaris terminates at the L1/ 2 level and has normal signal intensity and morphology. Mild diffuse loss of thoracolumbar vertebral body heights without acute compression fracture. Paraspinal soft tissue is unremarkable. Level by level evaluation: T12-L1: There is a mild diffuse disc bulge. Facet arthropathy: Mild field. Neural foraminal stenosis: No stenosis. Central canal stenosis: No stenosis. L1-L2: There is a mild diffuse disc bulge. Facet arthropathy: Mild. Neural foraminal stenosis: No stenosis. Central canal stenosis: No stenosis. L2-L3: There is a mild to moderate diffuse disc bulge. Facet arthropathy: Mild. Neural foraminal stenosis: Mild to moderate left, mild right. Central canal stenosis: No stenosis. L3-L4: There is a mild to moderate diffuse disc bulge. Facet arthropathy: Mild to moderate. Neural foraminal stenosis: Mild bilateral. Central canal stenosis: No stenosis. L4-L5: There is a moderate diffuse disc bulge. Facet arthropathy: Moderate, with sizable right-sided synovial cyst occluding the lateral recess. Neural foraminal stenosis: Moderate bilateral. Central canal stenosis: Moderate. L5-S1: There is a mild diffuse disc bulge. Facet arthropathy: Mild. Neural foraminal stenosis: Moderate right, mild to moderate left. Central canal stenosis: Mild. IMPRESSION: L4-5 arthropathy, right-sided synovial cyst occluding the lateral recess, could be affect ing traversing right L5 nerve root. Moderate neural foraminal stenosis at this level. Moderate to sev ere thoracolumbar disc disease. Reviewed, dictated and finalized at location A. OMIC ANALYSIS DIRECTOR IMPRESSION: L4-5 arthropathy, right-sided synovial cyst occluding the lateral r ecess, could be affecting traversing right L5 nerve root. Moderate neural gayatri inal stenosis at this level. Moderate to severe thoracolumbar disc disease.
== END ==
PROVIDERS: PCP Family Medicine; Visit Provider Family Medicine
DX: M54.41 Lumbago with sciatica, right side (principal)
CPT/HCPCS: 72148

== ENCOUNTER 2022-04-24 10:18 | Outpatient (CLI) | payer OTHER, SELFPAY ==
--- NOTE | ~2022-04-24 | XR_ITS ---
XR_[id number]_CR DATE: 04/24/2022 10:47 INDICATION: Fall. Rib injury, pain TECHNIQUE: PA chest. 3 views of right ribs. 3 views of left ribs. COMPARISON: None FINDINGS: Heart size is within upper normal limits. Aortic unfolding. No hilar or mediastinal enlarge ment. No pulmonary infiltrate or consolidation, pleural effusion or pulmonary vascular congestion or pneumo thorax is detected. Diffuse osteopenia. No rib fracture or bone destruction is detected. Mild thoracolumbar levoscoliosis . Degenerative spurring of the thoracic and lumbar spine. IMPRESSION: No left or right rib fractures detected No active cardiopulmonary disease Osteopenia Reviewed, dictated and finalized at Location [facility]. Reviewed, dictated and finalized at location B. ATION PARAPROFESSIONAL
== END 2022-04-24 10:19 | disposition home or self-care (01) ==
PROVIDERS: PCP Family Medicine; Visit Provider Internal Medicine Cardiovascular Disease
DX: R07.81 Pleurodynia (principal); M85.88 Other specified disorders of bone density and structure, other site
CPT/HCPCS: 71111

== ENCOUNTER → 2022-12-19 11:39 | Outpatient (CLI) | payer OTHER, SELFPAY ==
--- NOTE | ~2022-12-19 | XR_ITS ---
XR ankle LT 2V DATE: 12/19/2022 11:58 INDICATION: Left ankle effusion TECHNIQUE: AP and lateral views COMPARISON: None FINDINGS: There is mild periarticular spurring consistent with osteoarthritis at the tibiotalar joint . Plantar calcaneal enthesopathy. No fracture or dislocation of the ankle or disruption of the ankle mortise is detected. No periosteal reaction or bone destruction. Prominent anterior and posterior tibial and dorsalis pedis artery calcifications. IMPRESSION: Tibiotalar osteophyte is Plantar calcaneal enthesopathy Reviewed, dictated and finalized at location L.
== END ==
PROVIDERS: PCP Physician Assistant Medical; Visit Provider Physician Assistant Medical
DX: M25.472 Effusion, left ankle (principal); M25.572 Pain in left ankle and joints of left foot; M25.772 Osteophyte, left ankle; M77.32 Calcaneal spur, left foot
CPT/HCPCS: 73600

== ENCOUNTER 2023-05-07 11:34 | Outpatient (CLI) | payer OTHER, SELFPAY | END 2023-05-07 11:35 | PROVIDERS: PCP Family Medicine; Visit Provider Family Medicine | DX: M25.561 Pain in right knee (principal) | CPT/HCPCS: 73562 ==

== ENCOUNTER → 2023-05-21 09:30 | Outpatient (REF) | payer OTHER, SELFPAY | LOC: ANHLAB 09:30 | PROVIDERS: PCP Family Medicine; Visit Provider Plastic Surgery | DX: L82.1 Other seborrheic keratosis (principal) | CPT/HCPCS: 88305 ==

== ENCOUNTER 2023-08-14 11:03 | Outpatient (CLI) | payer OTHER, SELFPAY ==
--- NOTE | ~2023-08-14 | US_ITS ---
EXAMINATION: US carotid duplex BI DATE: 08/14/2023 12:25 INDICATION: Left carotid bruit TECHNIQUE: Grayscale, color Doppler, and pulsed Doppler images of the cervical carotid arteries were obtained. The degree of vessel stenosis is placed in one of the following categories: normal, <50%, 5 0-69%, >=70% but less than near-occlusion, near-occlusion, or total occlusion. Note that percent sten osis relative to normal distal artery lumen diameter is indirectly measured from velocity measurement s as described by David, et al. Radiology 2003; [id number]. COMPARISON: None. FINDINGS: RIGHT: The right common carotid artery (CCA) peak systolic velocity (PSV) is 74 cm/s. The right internal car otid artery (ICA) PSV is 65 cm/s. The right ICA end-diastolic velocity (EDV) is 23 cm/s. The right IC A/CCA PSV ratio is 0.9. Grayscale and color Doppler images yield an estimate of <50% diameter reducti on from plaque in the ICA. The external carotid artery (ECA) PSV is 105 cm/s. There is antegrade flow in the right vertebral artery. LEFT: The left CCA PSV is 56 cm/s. The left ICA PSV is 56 cm/s. The left ICA EDV is 19 cm/s. The left ICA/C CA PSV ratio is 1.0. Grayscale and color Doppler images yield an estimate of <50% diameter reduction from plaque in the ICA. The ECA PSV is 82 cm/s. There is antegrade flow in the left vertebral artery. IMPRESSION: 1. <50% stenosis in the right internal carotid artery. 2. <50% stenosis in the left internal carotid artery. Reviewed, dictated and finalized at location B.
== END 2023-08-14 11:04 | disposition home or self-care (01) ==
LOC: ANHIMG 11:07
PROVIDERS: PCP Family Medicine; Visit Provider Internal Medicine Cardiovascular Disease
DX: I65.23 Occlusion and stenosis of bilateral carotid arteries (principal); R09.89 Other specified symptoms and signs involving the circulatory and respiratory systems
CPT/HCPCS: 93880

== ENCOUNTER 2023-09-24 11:04 | Outpatient (CLI) | payer OTHER, SELFPAY ==
--- NOTE | ~2023-09-24 | XR_ITS ---
3 VIEWS LUMBAR SPINE Ordering provider: Delmar Patel PA-C History: . M54.50 - Low back pain, LIFTING INJURY, HX RUPTURED L5 DISC . Comparison: September 08, 2012 FINDINGS: VERTEBRAL BODIES: No visible fracture or subluxation. Degenerative changes of the spine. DISK SPACES: Narrowing of the disc T11-T12, T12-L1, L1-L2, L2-L3, L4-L5 and L5-S1. Multilevel facet j oint disease. SOFT TISSUES: Aortic calcifications. IMPRESSION: No acute osseous abnormality lumbar spine. Multilevel degenerative disc.. Reviewed, dictated and finalized at location A.
== END 2023-09-24 11:05 | disposition home or self-care (01) ==
LOC: ANHIMG 11:08
PROVIDERS: PCP Family Medicine; Visit Provider Physician Assistant
DX: S39.92XA Unspecified injury of lower back, initial encounter (principal); M54.50 Low back pain, unspecified; M51.36 Other intervertebral disc degeneration, lumbar region
CPT/HCPCS: 72110

== ENCOUNTER 2024-05-27 09:09 | Outpatient (CLI) | payer OTHER, SELFPAY ==
--- NOTE | ~2024-05-27 | XR_ITS ---
XR knee RT 3V 05/27/2024 09:32 Indication: Right knee pain Procedure: 3 views right knee Comparison: 04/08/2023 Findings: No fracture, subluxation or dislocation. Small joint effusion. No foreign bodies. Mild oste oarthritis. Impression: 1: Mild tricompartment osteoarthritis. Reviewed, dictated and finalized at location A. Impression: 1: Mild tricompartment osteoarthritis.
== END 2024-05-27 09:10 | disposition home or self-care (01) ==
LOC: MICIMG 09:12
PROVIDERS: PCP Family Medicine; Visit Provider Physician Assistant Medical
DX: M17.11 Unilateral primary osteoarthritis, right knee (principal)
CPT/HCPCS: 73562